=== PATIENT | female | born 1995 | race American Indian/Alaskan Native ===

== ENCOUNTER 2019-05-16 19:58 | Emergency (ER) | payer BC ==
--- NOTE | 2019-05-16 20:16 | Emergency Department Report ---
Blank Doc - Documentation Documentation: 24-year-old female that presents with URI symptoms. This initial assessment/diagnostic orders/clinical plan/treatment(s) is/are subject to change based on patient's health status, clinical progression and re- assessment by fellow clinical providers in the ED. Further treatment and workup at subsequent clinical providers discretion. Patient/guardians urged not to elope from the ED as their condition may be serious if not clinically assessed and managed. Initial orders include: 1- Patient sent to [facility] for further evaluation and treatment 2- CXR
[2019-05-16 20:19] VITALS: BP 98/54
--- NOTE | 2019-05-16 21:04 | XRay Report ---
CHEST 2 VIEWS INDICATION / CLINICAL INFORMATION: cough. COMPARISON: None available. FINDINGS: SUPPORT DEVICES: None. HEART / MEDIASTINUM: No significant abnormality. LUNGS / PLEURA: No significant pulmonary or pleural abnormality. .No pneumothorax. ADDITIONAL FINDINGS: No significant additional findings. IMPRESSION: 1. No acute findings. Signer Name: Tong Gómez MD Signed: 05/16/2019 8:59 PM Workstation Name: [id number]
--- NOTE | 2019-05-16 22:23 | Emergency Department Report ---
Minor Respiratory - [facility] Chief Complaint: Upper Respiratory Infection Stated Complaint: COUGH/SINUS Time Seen by Provider: 05/16/19 20:15 Duration: 2 Days Minor Respiratory: Yes Cough, No Rhinorrhea (nasal congestion) Other History: 24-year-old -Polish female presents to the emergency room with productive cough with nasal congestion 2 days for cough and 1 day for nasal congestion. Patient states she she started Sudafed today has had one dose. Patient has taken nothing for her cough. Patient denies any past medical history. Allergic to aspirin currently takes no medications on a daily basis. ED Review of Systems ROS: Stated complaint: COUGH/SINUS Other details as noted in HPI ED Past Medical Hx - Past Medical History Previous Medical History?: No - Surgical History Past Surgical History?: Yes Hx Appendectomy: Yes Additional Surgical History: TONSILLECTOMY - Social History Smoking Status: Never Smoker Substance Use Type: None Minor Respiratory Exam - Exam General: Vital signs noted. No distress. Alert and acting appropriately. Neck: Yes Supple, No Adenopathy Lungs: Yes Good Air Exchange, No Wheezes, No Ronchi, No Stridor, No Cough, No Labored Respirations, No Retractions, No Use of Accessory Muscles, No Other Abnormal Lung Sounds Heart: Yes Regular, No Murmur Abdomen: Yes Normal Bowel Sounds, No Tenderness, No Peritoneal Signs Skin: No Rash, No Edema Neurologic: Alert and oriented, no deficits. Musculoskeletal: Unremarkable. ED Course Vital Signs 05/16/19 20:16 Temperature 98.8 F Pulse Rate 96 H Respiratory 18 Rate Blood Pressure 98/54 O2 Sat by Pulse 100 Oximetry ED Medical Decision Making - Radiology Data Radiology results: report reviewed Patient: CLARIBEL FARIA MR#: [id number] : 1995 Acct:[id number] Age/Sex: 24 / F ADM Date: 05/16/19 Loc: ED Attending Dr: Ordering Physician: DANDY NICK NP Date of Service: 05/16/19 Procedure(s): XR chest routine 2V Accession Number(s): [id number] cc: DANDY NICK NP Fluoro Time In Minutes: CHEST 2 VIEWS INDICATION / CLINICAL INFORMATION: cough. COMPARISON: None available. FINDINGS: SUPPORT DEVICES: None. HEART / MEDIASTINUM: No significant abnormality. LUNGS / PLEURA: No significant pulmonary or pleural abnormality. .No pneumothorax. ADDITIONAL FINDINGS: No significant additional findings. IMPRESSION: 1. No acute findings. Signer Name: Tong Gómez MD Signed: 05/16/2019 8:59 PM Workstation Name: [id number] Transcribed By: SS Dictated By: Tong Gómez MD Electronically Authenticated By: Tong Gómez MD Signed Date/Time: 05/16/192058 DD/ 57 TD/TT: - Medical Decision Making 24-year-old -Polish female presents to the emergency room with productive cough with nasal congestion 2 days for cough and 1 day for nasal congestion. Patient states she she started Sudafed today has had one dose. Patient has taken nothing for her cough. Patient denies any past medical history. Allergic to aspirin currently takes no medications on a daily basis. Chest x-ray negative for any acute finding. Discussed the patient she can get [id number] Flonase continue with the Sudafed as well as start Claritin and Robitussin which are all [id number]. Patient take Tylenol for any pain. Increase her fluid intake which I help keep her secretions clear and thin. Critical care attestation.: If time is entered above; I have spent that time in minutes in the direct care of this critically ill patient, excluding procedure time. ED Disposition Clinical Impression: Nasal congestion, Cough Disposition: DC-01 TO HOME OR SELFCARE Is pt being admited?: No Does the pt Need Aspirin: No Condition: Stable Instructions: Pseudoephedrine (By mouth), Allergic Rhinitis (ED) Additional Instructions: Increase her fluid intake. Continue with their Sudafed medication. Incorporate Claritin and Flonase which are both [id number]. He can take Tylenol as needed for pain. Follow up with a primary care provider if his symptoms persist or gets worse. Referrals: DOUG MACKENZIE MD [Staff Physician] - 3-5 Days Forms: Work/School Release Form(ED)
== END 2019-05-16 23:15 | disposition home or self-care (01) ==
LOC: ED 19:58
DX: R05 Cough (principal); R09.81 Nasal congestion; Z90.89 Acquired absence of other organs; Z98.890 Other specified postprocedural states; Z88.6 Allergy status to analgesic agent
CPT/HCPCS: 71046; 99283